=== PATIENT | male | born 1985 | race American Indian/Alaskan Native ===

== ENCOUNTER 2016-09-28 01:18 | Emergency (ER) | payer SELFPAY ==
[2016-09-28 01:18] VITALS: BMI 30.5
[2016-09-28 01:30] VITALS: PULSE 74; RESP 16; TEMP 97.9; O2SAT 98
[2016-09-28] MEDS ORDERED: cefTRIAXone (Rocephin) 250 mg Inj IM STA (01:58)
--- NOTE | 2016-09-28 02:09 | C.PDOC ---
History Of Present Illness Pt presents to ER with c/o of suprapubic pain, dysuria and penile discharge x 2 days. Pt is sexually active with 2 partners and no condom use. Denies fever, vomiting, testicular pain and penile lesion Time Seen by Provider: 09/28/16 01:40 Chief Complaint (Nursing): Male Genitourinary History Per: Patient History/Exam Limitations: no limitations Current Symptoms Are (Timing): Still Present Severity: Moderate Quality Of Discomfort: Burning (penile) Associated Symptoms: denies: Fever, Vomiting Past Medical History Vital Signs: Last Vital Signs Temp 97.9 F 09/28/16 01:27 Pulse 74 09/28/16 01:27 Resp 16 09/28/16 01:27 BP 153/80 H 09/28/16 01:27 Pulse Ox 98 09/28/16 01:27 - Medical History PMH: Back Problems Family History: States: Unknown Family Hx - Social History Hx Tobacco Use: No Hx Alcohol Use: Yes (social) Hx Substance Use: No - Immunization History Hx Tetanus Toxoid Vaccination: Yes Hx Influenza Vaccination: Yes Hx Pneumococcal Vaccination: No Review Of Systems Constitutional: Negative for: Fever Gastrointestinal: Positive for: Abdominal Pain (suprapubic - mid) Genitourinary: Positive for: Dysuria, Penile Discharge, Penile Pain. Negative for: Hematuria, Scrotal Pain, Rash Physical Exam - Physical Exam Appears: Well, No Acute Distress Skin: Normal Color Head: Normacephalic Eye(s): bilateral: Normal Inspection, PERRL, EOMI Oral Mucosa: Moist Gastrointestinal/Abdominal: Normal Exam, Soft, No Tenderness, No Distention, No Guarding, No Rebound Back: Normal Inspection, No CVA Tenderness Male Genital: Other (pt refused ) Neurological/Psych: Oriented x3 ED Course And Treatment O2 Sat by Pulse Oximetry: 98 Disposition Counseled Patient/Family Regarding: Diagnosis, Need For Followup - Disposition Disposition: HOME/ ROUTINE Disposition Time: 02:16 Condition: STABLE Additional Instructions: Use protection Follow up in STD clinic for other STD tests Instructions: Nonspecific Urethritis in Men (ED) - Clinical Impression Clinical Impression: Urethritis
[2016-09-28 02:23] VITALS: BP 145/78
== END 2016-09-28 02:23 | disposition home or self-care (01) ==
LOC: C.ER 01:18
DX: N34.2 Other urethritis (principal)
CPT/HCPCS: 87491; 87591; 96372; 99283; J0696

== ENCOUNTER 2016-11-24 18:04 | Emergency (ER) | payer OTHER ==
[2016-11-24 18:04] VITALS: BMI 30.5
[2016-11-24 18:15] VITALS: BP 121/79; PULSE 69; RESP 18; TEMP 97.8; O2SAT 98
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
== END 2016-11-24 19:07 | disposition home or self-care (01) ==
LOC: C.ER 18:04
DX: S13.4XXA Sprain of ligaments of cervical spine, initial encounter (principal); V49.9XXA Car occupant (driver) (passenger) injured in unspecified traffic accident, initial encounter

== ENCOUNTER 2017-04-19 04:06 | Emergency (ER) | payer MEDICAID, OTHER ==
[2017-04-19 04:06] VITALS: BMI 30.5
[2017-04-19] MEDS ORDERED: Iohexol 240 (50 ml) PO STA (05:50)
[2017-04-19] MEDS ORDERED: Oxycodone/Acetaminophen 5/325 mg Tab PO STA (05:53)
[2017-04-19 06:04] LABS: BASO # 0.1 K/uL (0.0-0.2); BASO % 0.8 % (0.0-2.0); EOS # 0.1 K/uL (0.0-0.7); EOS % 1.5 % (0.0-4.0); HEMATOCRIT 40.7 % (35.0-51.0); LYMPH # 2.6 K/uL (1.0-4.3); LYMPH % 29.9 % (20.0-40.0); MEAN CELL VOLUME 81.6 fL (80.0-94.0); MEAN CORPUSCULAR HEMOGLOBIN 27.3 pg (27.0-31.0); MEAN CORPUSCULAR HGB CONC 33.5 g/dL (33.0-37.0); MEAN PLATELET VOLUME 7.2 fL (7.2-11.7); MONO % 11.4 % (0.0-10.0); RED CELL DISTRIBUTION WIDTH 14.8 % (11.5-14.5); WHITE BLOOD COUNT 8.7 K/uL (4.8-10.8)
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
[2017-04-19 06:15] LABS: ALB/GLOB RATIO 1.4 (1.0-2.1); ALKALINE PHOSPHATASE 56 U/L (38-126); ALT/SGPT 37 U/L (21-72); AST/SGOT 14 U/L (17-59); BILIRUBIN,TOTAL 0.6 mg/dL (0.2-1.3); BLOOD UREA NITROGEN 12 mg/dL (9-20); CALCIUM 8.5 mg/dl (8.6-10.4); CARBON DIOXIDE 24 mmol/L (22-30); CHLORIDE 100 mmol/L (98-107); GFR AFRICAN-AMERICAN > 60; GLUCOSE,RANDOM 106 mg/dL (75-110); POTASSIUM 3.4 mmol/L (3.6-5.2); SODIUM 135 mmol/L (132-148)
[2017-04-19] MEDS ORDERED: Iohexol 240 (50 ml) ONE (06:29)
[2017-04-19] MEDS ORDERED: Oxycodone/Acetaminophen 5/325 mg Tab ONE (06:29)
[2017-04-19] MEDS ORDERED: Iohexol 300 100 ML IJ ONE (07:48)
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
[2017-04-19 11:03] LABS: RBC URINE 1 /hpf (0-3); URINE BACTERIA RARE (<OCC); URINE BILIRUBIN NEGATIVE (NEGATIVE); URINE BLOOD NEGATIVE (NEGATIVE); URINE COLOR Straw (YELLOW); URINE GLUCOSE (UA) NORMAL (Normal); URINE KETONE NEGATIVE (NEGATIVE); URINE LEUKOCYTE ESTERASE NEG Leu/uL (Negative); URINE PROTEIN NEGATIVE (NEGATIVE); URINE UROBILINOGEN NORMAL mg/dL (0.2-1.0); WBC URINE 3 /hpf (0-5)
[2017-04-19 11:50] VITALS: BP 128/82; PULSE 79; RESP 20; TEMP 97.9; O2SAT 97
== END 2017-04-19 12:17 | disposition home or self-care (01) ==
LOC: C.ER 04:06
DX: K52.9 Noninfective gastroenteritis and colitis, unspecified (principal); R52 Pain, unspecified; K92.1 Melena
CPT/HCPCS: 74177; 80053; 81001; 83690; 85025; 87086; 96374; 96375; 99285; G0328; J1885; J2270; Q9966; Q9967

== ENCOUNTER 2017-05-06 08:17 | Day surgery (SDC) | payer MEDICAID ==
[2017-05-06 09:13] VITALS: BMI 30.9
[2017-05-06] MEDS ORDERED: Propofol 10 mg/ml Inj (20 ML) ONE (10:41)
[2017-05-06] MEDS ORDERED: Lactated Ringer's 500 ML IV SCH (10:45)
[2017-05-06 11:27] VITALS: TEMP 96.8
[2017-05-06 13:54] VITALS: BP 105/52; PULSE 59; RESP 13; O2SAT 99
== END 2017-05-06 12:00 | disposition home or self-care (01) ==
LOC: C.ENDO 08:17
PROVIDERS: ATTEND Internal Medicine Gastroenterology
DX: K64.1 Second degree hemorrhoids (principal); K62.5 Hemorrhage of anus and rectum
CPT/HCPCS: 45378; J2704; J3010; J7120

== ENCOUNTER 2017-10-21 15:43 | Emergency (ER) | payer MEDICAID ==
[2017-10-21 15:43] VITALS: BMI 30.9
[2017-10-21] MEDS ORDERED: Sodium Chloride 0.9% 1,000 ML IV ONE (16:10)
[2017-10-21] MEDS ORDERED: Sodium Chloride 0.9% 1,000 ML ONE (16:15)
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
[2017-10-21 16:45] LABS: BASO # 0.1 K/uL (0.0-0.2); BASO % 0.7 % (0.0-2.0); EOS # 0.3 K/uL (0.0-0.7); EOS % 3.5 % (0.0-4.0); HEMOGLOBIN 15.7 g/dL (12.0-18.0); LYMPH # 3.1 K/uL (1.0-4.3); MEAN CELL VOLUME 84.8 fL (80.0-94.0); MEAN CORPUSCULAR HEMOGLOBIN 28.4 pg (27.0-31.0); MEAN CORPUSCULAR HGB CONC 33.5 g/dL (33.0-37.0); MEAN PLATELET VOLUME 7.4 fL (7.2-11.7); MONO % 11.8 % (0.0-10.0); NEUT # 4.1 K/uL (1.8-7.0); NRBC % 0.2 % (0.0-2.0); RBC 5.53 Mil/uL (4.40-5.90); RED CELL DISTRIBUTION WIDTH 14.9 % (11.5-14.5); WHITE BLOOD COUNT 8.6 K/uL (4.8-10.8)
[2017-10-21 17:00] LABS: ALB/GLOB RATIO 1.1 (1.0-2.1); ALBUMIN 4.3 g/dL (3.5-5.0); ALT/SGPT 28 U/L (21-72); AST/SGOT 26 U/L (17-59); BLOOD UREA NITROGEN 12 mg/dL (9-20); CALCIUM 9.4 mg/dl (8.6-10.4); GFR AFRICAN-AMERICAN > 60; GFR NON-AFRICAN AMERICAN > 60
--- NOTE | 2017-10-21 18:18 | RAD ---
PROCEDURE: Radiographs of the chest and abdomen (obstructive series) HISTORY: Abd Pain COMPARISON: No prior. TECHNIQUE: AP radiograph of the chest, with upright and supine radiographs of the abdomen. FINDINGS: CHEST: Lungs: Clear. Cardiovascular: Normal size heart. No pulmonary vascular congestion. Pleura: No pleural fluid. No pneumothorax. Other findings: None. ABDOMEN AND PELVIS: Bowel: Unremarkable bowel gas pattern. No evidence of mechanical obstruction. Free air: None. Bones: Unremarkable. Other findings: None. IMPRESSION: Unremarkable radiographs of chest and abdomen. No evidence of mechanical bowel obstruction.
[2017-10-21 18:24] LABS: SQUAMOUS EPITHIAL < 1 /hpf (0-5); URINE BILIRUBIN NEGATIVE (NEGATIVE); URINE BLOOD NEGATIVE (NEGATIVE); URINE CLARITY Clear (Clear); URINE COLOR Yellow (YELLOW); URINE GLUCOSE (UA) NORMAL (Normal); URINE LEUKOCYTE ESTERASE NEG Leu/uL (Negative); URINE PROTEIN NEGATIVE (NEGATIVE)
[2017-10-21 18:49] VITALS: BP 124/75; PULSE 73; RESP 18; TEMP 98.4; O2SAT 97
== END 2017-10-21 18:55 | disposition home or self-care (01) ==
LOC: C.ER 15:43
DX: R53.1 Weakness (principal)

== ENCOUNTER 2018-01-09 05:43 | Emergency (ER) | payer MEDICAID ==
[2018-01-09 05:44] VITALS: BMI 30.9
[2018-01-09 08:03] VITALS: RESP 16
[2018-01-09] MEDS ORDERED: Sodium Chloride 0.9% 1,000 ML IV ONE (08:24)
[2018-01-09 08:42] LABS: SQUAMOUS EPITHIAL < 1 /hpf (0-5); URINE BILIRUBIN NEGATIVE (NEGATIVE); URINE BLOOD NEGATIVE (NEGATIVE); URINE CLARITY Clear (Clear); URINE COLOR Yellow (YELLOW); URINE GLUCOSE (UA) NORMAL (Normal); URINE LEUKOCYTE ESTERASE NEG Leu/uL (Negative); URINE PROTEIN NEGATIVE (NEGATIVE)
[2018-01-09 08:42] LABS: BASO # 0.1 K/uL (0.0-0.2); EOS # 0.2 K/uL (0.0-0.7); EOS % 2.4 % (0.0-4.0); HEMOGLOBIN 14.8 g/dL (12.0-18.0); LYMPH # 2.5 K/uL (1.0-4.3); LYMPH % 31.7 % (20.0-40.0); MEAN CELL VOLUME 83.1 fL (80.0-94.0); MEAN CORPUSCULAR HEMOGLOBIN 28.2 pg (27.0-31.0); MEAN PLATELET VOLUME 7.5 fL (7.2-11.7); MONO % 12.3 % (0.0-10.0); NEUT # 4.1 K/uL (1.8-7.0); NEUT % 52.6 % (50.0-75.0); RBC 5.24 Mil/uL (4.40-5.90); RED CELL DISTRIBUTION WIDTH 14.3 % (11.5-14.5); WHITE BLOOD COUNT 7.8 K/uL (4.8-10.8)
[2018-01-09 08:45] LABS: BARBITURATES, UR NEGATIVE (NEGATIVE); BENZODIAZEPINES, UR NEGATIVE (NEGATIVE); OPIATES, UR NEGATIVE (NEGATIVE); PHENCYCLIDINE, UR NEGATIVE (NEGATIVE)
[2018-01-09 08:52] LABS: ALB/GLOB RATIO 1.4 (1.0-2.1); ALBUMIN 4.3 g/dL (3.5-5.0); ALT/SGPT 30 U/L (21-72); AST/SGOT 21 U/L (17-59); BLOOD UREA NITROGEN 13 mg/dL (9-20); CALCIUM 9.4 mg/dl (8.6-10.4); GFR AFRICAN-AMERICAN > 60; GFR NON-AFRICAN AMERICAN > 60
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
[2018-01-09 10:16] VITALS: BP 118/80; PULSE 80; TEMP 98.4
[2018-01-09 10:32] VITALS: O2SAT 96
== END 2018-01-09 10:15 | disposition home or self-care (01) ==
LOC: C.ER 05:43
DX: R39.198 Other difficulties with micturition (principal)
CPT/HCPCS: 80053; 80324; 80345; 80346; 80349; 80353; 80358; 80361; 81001; 83992; 85025; 96360; 96372; 99285; J1885; J7030